=== PATIENT | male | born 1955 | race Caucasian/White ===

== ENCOUNTER 2020-08-31 12:30 | Emergency (ER) | payer MEDICARE, MEDICAID ==
[~2020-08-31] VITALS: Ht 188 cm; Wt 115.9 kg
[~2020-08-31 12:30] MED LIST: APIX5TAB3 PO; ATOR10TA70 PO; CARV-50 PO; CARV25TA2 PO; FURO20TA4 PO; LINA5TAB4 PO; METF-438 PO; SPIR1TAB4 PO
--- NOTE | 2020-08-31 12:55 | NUR ---
PER DR MO NO C-COLLA NEEDED AT THIS TIME.
[2020-08-31 14:55] LABS: BASOPHILS % (AUTO) 0.3 % (0-1); EOSINOPHILS # (AUTO) 0.5 X10'3 (0-0.9); EOSINOPHILS % (AUTO) 3.3 % (0-6); HEMOGLOBIN 15.6 g/dl (14.0-17.9); LYMPHOCYTES # (AUTO) 2.3 X10'3 (1.1-4.8); LYMPHOCYTES % (AUTO) 16.1 % (21-51); MEAN CORPUSCULAR HEMOGLOBIN 32.7 PG (27.0-31.0); MEAN CORPUSCULAR HGB CONC 33.2 g/dL (33.0-36.5); MEAN CORPUSCULAR VOLUME 98.4 FL (78-98); MEAN PLATELET VOLUME 9.4 FL (7.4-10.4); MONOCYTES # (AUTO) 1.3 X10'3 (0-0.9); MONOCYTES % (AUTO) 8.8 % (2-12); NEUTROPHILS # (AUTO) 10.4 X10'3 (1.8-7.7); NEUTROPHILS % (AUTO) 71.5 % (42-75); PLATELET COUNT 251 X10'3 (140-440); RED BLOOD COUNT 4.78 X10'6 (4.70-6.10); RED CELL DISTRIBUTION WIDTH 13.6 % (11.5-14.5); WHITE BLOOD COUNT 14.5 X10'3 (4.5-11.0)
--- NOTE | 2020-08-31 14:57 | NUR ---
SISTER TARUN ([phone]) STATES SHE CAN GIVE PT A RIDE WHEN D/C'D
[2020-08-31 15:11] LABS: PARTIAL THROMBOPLASTIN TIME 28 SECONDS (22-32)
[2020-08-31 15:12] LABS: ALANINE AMINOTRANSFERASE 28 U/L (12-78); ALBUMIN 3.8 G/DL (3.4-5.0); ALBUMIN/GLOBULIN RATIO 0.7 (1.1-1.5); ALKALINE PHOSPHATASE 93 IU/L (46-116); ANION GAP 10 (8-16); BILIRUBIN,TOTAL 0.5 MG/DL (0.1-1.0); BLOOD UREA NITROGEN 25 MG/DL (7-18); BUN/CREATININE RATIO 18.4 (5.4-32.0); CALCIUM 9.6 MG/DL (8.5-10.1); CHLORIDE 103 MMOL/L (99-107); CREATININE 1.36 MG/DL (0.60-1.10); GLUCOSE 148 MG/DL (70-104); SODIUM 140 MMOL/L (135-145); TOTAL CARBON DIOXIDE 27.5 MMOL/L (24-32); TOTAL PROTEIN 8.9 G/DL (6.4-8.2); eGFR 53 ML/MIN
[2020-08-31 15:22] LABS: ASPARTATE AMINO TRANSFERASE 20 U/L (10-37)
[2020-08-31] MEDS ORDERED: morphine 4 MG/ML inj SYRINge IV ONE (15:40)
[2020-08-31] MEDS ORDERED: ondansetron/PF 4mg/2ml inj IV ONE (15:40)
--- NOTE | 2020-08-31 15:53 | NUR ---
TO CT VIA WC
[2020-08-31] MEDS ORDERED: HYDROcodone/acetaminophen 5mg/325mg tablet PO ONE (15:55)
[2020-08-31] MEDS ORDERED: iohexol 300mg/ml 100ml inj. ONE (15:57)
[2020-08-31] MEDS ORDERED: MESSAGE TO NURSING PO NR (16:00)
[2020-08-31] MEDS ORDERED: CYCL-1 PO (16:37)
[2020-08-31 16:52] VITALS: BP 134/92
== END 2020-08-31 16:53 | disposition home or self-care (01) ==
LOC: ER 12:31
DX: S16.1XXA Strain of muscle, fascia and tendon at neck level, initial encounter (principal); M25.511 Pain in right shoulder; M54.2 Cervicalgia; R51.9 Headache, unspecified; M54.9 Dorsalgia, unspecified; I48.91 Unspecified atrial fibrillation; I25.10 Atherosclerotic heart disease of native coronary artery without angina pectoris; E11.9 Type 2 diabetes mellitus without complications; Z86.69 Personal history of other diseases of the nervous system and sense organs; Z86.73 Personal history of transient ischemic attack (TIA), and cerebral infarction without residual deficits; Z98.61 Coronary angioplasty status; Z88.8 Allergy status to other drugs, medicaments and biological substances; Z79.01 Long term (current) use of anticoagulants; Z79.84 Long term (current) use of oral hypoglycemic drugs; Z79.899 Other long term (current) drug therapy; V87.7XXA Person injured in collision between other specified motor vehicles (traffic), initial encounter; Y92.89 Other specified places as the place of occurrence of the external cause; Y93.89 Activity, other specified; Y99.8 Other external cause status
CPT/HCPCS: 36415; 70450; 71270; 72125; 74177; 80053; 85025; 85610; 85730; 96374; 99285; J2405; Q9967

== ENCOUNTER 2020-11-23 12:05 | Emergency (ER) | payer OTHER, MEDICAID ==
[~2020-11-23] VITALS: Ht 188 cm; Wt 111.4 kg
[~2020-11-23 12:05] MED LIST changes: +CYCL-1 PO
[2020-11-23 12:08] VITALS: BP 122/83
[2020-11-26] MEDS ORDERED: CARCD120C PO (09:40)
== END 2020-11-23 13:13 | disposition home or self-care (01) ==
LOC: ER 12:05
DX: M25.562 Pain in left knee (principal); M25.462 Effusion, left knee; I48.91 Unspecified atrial fibrillation; I25.10 Atherosclerotic heart disease of native coronary artery without angina pectoris; I50.9 Heart failure, unspecified; E11.9 Type 2 diabetes mellitus without complications; Z86.69 Personal history of other diseases of the nervous system and sense organs; Z86.73 Personal history of transient ischemic attack (TIA), and cerebral infarction without residual deficits; Z98.890 Other specified postprocedural states; Z88.8 Allergy status to other drugs, medicaments and biological substances; Z79.899 Other long term (current) drug therapy
CPT/HCPCS: 29505; 73564; 99283